=== PATIENT | male | born 1955 | race Caucasian/White ===

== ENCOUNTER 2025-06-07 18:43 | Emergency (ER) | payer MEDICARE, OTHER ==
[~2025-06-07 18:43] MED LIST: Iopamidol 370 76% 100 ML VIAL ONE
[2025-06-07] MEDS ORDERED: Aspirin 325 MG TAB ONE ×2 (19:01→19:03)
[2025-06-07] MEDS ORDERED: Nitroglycerin 0.4 MG TAB 1 EACH ONE (19:02)
[2025-06-07] MEDS ORDERED: Ondansetron PF 4 MG/2 ML Vial ONE ×2 (19:14→19:52)
[2025-06-07 19:16] LABS: #Basophils 0.1 thou/uL (0.0-0.2); #Eosinophils 0.0 thou/uL (0.0-0.7); #Lymphocytes 1.7 thou/uL (1.20-3.40); #Monocytes 0.5 thou/uL (0.11-0.59); #Neutrophils 8.1 thou/uL (1.40-6.50); %Basophils 1.3 % (0.0-1.0); %Eosinophils 0.4 % (0.0-10.0); %Lymphocytes 16.7 % (21.0-51.0); %Monocytes 4.3 % (0.0-10.0); %Neutrophils 77.4 % (42.0-75.0); Hematocrit 39.9 % (42.0-52.0); Hemoglobin 14.5 g/dL (14.0-18.0); Mean Corpuscular Hemoglobin 32.2 pg (27.0-31.0); Mean Corpuscular Volume 88.3 fl (78.0-98.0); Platelet Count 318 10x3/uL (130-400); Red Blood Cell (RBC) Count 4.51 mill/uL (4.70-6.10); White Blood Cell (WBC) Count 10.4 10x3/uL (4.8-10.8)
[2025-06-07 19:31] LABS: ALT (SGPT) 14 U/L (Less than 45); AST (SGOT) 24 U/L (11-34); Albumin 4.5 g/dL (3.1-4.5); Alkaline Phosphatase 82 U/L (40-110); Anion Gap 19 mmol/L (10-20); BUN (Urea Nitrogen) 12 mg/dL (8.4-25.7); Bilirubin, Total 0.8 mg/dL (0.3-1.2); Calc. Creatinine Clearance 0 mL/min (70-130); Calcium 9.8 mg/dL (7.8-10.44); Carbon Dioxide 29 mmol/L (23-31); Chloride 97 mmol/L (98-107); Globulin 2.9 g/dL (2.4-3.5); Glucose 117 mg/dL (80-115); Lipase 16 U/L (8-78); Potassium 4.2 mmol/L (3.5-5.1); Sodium 141 mmol/L (136-145)
[2025-06-07 19:34] LABS: Troponin I 0.053 ng/mL (< 0.028)
== END 2025-06-07 23:09 | disposition short-term general hospital (02) ==
LOC: BURERS 18:43
DX: I21.A1 Myocardial infarction type 2 (principal); K56.609 Unspecified intestinal obstruction, unspecified as to partial versus complete obstruction; I10 Essential (primary) hypertension; R11.2 Nausea with vomiting, unspecified
CPT/HCPCS: 43752; 71045; 74177; 80053; 83690; 84484; 85025; 93005; 96361; 96374; 96375; 96376; J2270; J2405; J2550; Q9967